=== PATIENT | male | born 1970 | race Caucasian/White ===

== ENCOUNTER 2019-07-18 22:57 | Emergency (ER) | payer BC ==
[~2019-07-18] VITALS: Ht 188 cm; Wt 90.9 kg
[2019-07-18 22:59] VITALS: BP 152/94
[2019-07-18] MEDS ORDERED: ondansetron/PF 4mg/2ml inj IV ONE (23:20)
[2019-07-18] MEDS ORDERED: normal saline 1000ML IV soln IVB ONE (23:30)
[2019-07-18] MEDS ORDERED: pantoprazole 40 MG vial IV ONE (23:40)
[2019-07-18] MEDS ORDERED: famotidine/PF 10 mg/ml inj IV ONE (23:40)
[2019-07-18 23:59] LABS: BASOPHILS # (AUTO) 0.1 X10'3 (0-0.2); BASOPHILS % (AUTO) 0.4 % (0-1); EOSINOPHILS # (AUTO) 0.2 X10'3 (0-0.9); EOSINOPHILS % (AUTO) 1.1 % (0-6); HEMATOCRIT 48.3 % (42.0-52.0); HEMOGLOBIN 16.8 g/dl (14.0-17.9); LYMPHOCYTES # (AUTO) 0.8 X10'3 (1.1-4.8); LYMPHOCYTES % (AUTO) 4.7 % (21-51); MEAN CORPUSCULAR HEMOGLOBIN 32.1 PG (27.0-31.0); MEAN CORPUSCULAR HGB CONC 34.8 g/dL (33.0-36.5); MEAN CORPUSCULAR VOLUME 92.2 FL (78-98); MEAN PLATELET VOLUME 8.1 FL (7.4-10.4); MONOCYTES # (AUTO) 0.8 X10'3 (0-0.9); NEUTROPHILS % (AUTO) 88.8 % (42-75); PLATELET COUNT 278 X10'3 (140-440); RED BLOOD COUNT 5.24 X10'6 (4.70-6.10); WHITE BLOOD COUNT 16.9 X10'3 (4.5-11.0)
[2019-07-19 00:11] LABS: H PYLORI ANTIBODY NEGATIVE (Neg)
[2019-07-19 00:12] LABS: ALANINE AMINOTRANSFERASE 58 U/L (12-78); ALBUMIN 4.7 G/DL (3.4-5.0); ALBUMIN/GLOBULIN RATIO 1.5 (1.1-1.5); ALKALINE PHOSPHATASE 86 IU/L (46-116); ANION GAP 12 (8-16); ASPARTATE AMINO TRANSFERASE 22 U/L (10-37); BILIRUBIN,TOTAL 0.7 MG/DL (0.1-1.0); BLOOD UREA NITROGEN 22 MG/DL (7-18); BUN/CREATININE RATIO 20.4 (5.4-32.0); CALCIUM 9.3 MG/DL (8.5-10.1); CHLORIDE 102 MMOL/L (99-107); CREATININE 1.08 MG/DL (0.60-1.10); GLUCOSE 111 MG/DL (70-104); LIPASE 86 U/L (73-393); POTASSIUM 4.2 MMOL/L (3.5-5.1); SODIUM 138 MMOL/L (135-145); TOTAL CARBON DIOXIDE 24.4 MMOL/L (24-32); TOTAL PROTEIN 7.9 G/DL (6.4-8.2); eGFR 73 ML/MIN
[2019-07-19] MEDS ORDERED: SUCR1TAB34 PO (00:44)
[2019-07-19] MEDS ORDERED: OMEP-297 PO (00:44)
[2019-07-19] MEDS ORDERED: FAMO20TA44 PO (00:44)
[2019-07-19] MEDS ORDERED: ONDA4TAB6 PO (00:44)
[2019-07-19] MEDS ORDERED: ondansetron/PF 4mg/2ml inj IV ONE (01:05)
== END 2019-07-19 01:30 | disposition home or self-care (01) ==
LOC: ER 22:58
DX: K52.9 Noninfective gastroenteritis and colitis, unspecified (principal); F10.99 Alcohol use, unspecified with unspecified alcohol-induced disorder; Z79.899 Other long term (current) drug therapy; Y90.9 Presence of alcohol in blood, level not specified
CPT/HCPCS: 36415; 80053; 83605; 83690; 85025; 86677; 96374; 96375; 99283; C9113; J2405; J3490; J7030; 96361